=== PATIENT | female | born 1960 | race Caucasian/White ===

== ENCOUNTER 2020-02-09 15:47 | Outpatient (REF) | payer MEDICAID, SELFPAY | END 2020-02-09 15:48 | disposition home or self-care (01) | LOC: HO.LAB 15:47 | PROVIDERS: Visit Provider Internal Medicine | DX: Z20.828 Contact with and (suspected) exposure to other viral communicable diseases (principal) | CPT/HCPCS: C9803; U0003 ==

== ENCOUNTER 2021-11-23 19:14 | Emergency (ER) | payer MEDICAID, SELFPAY | END 2021-11-23 21:02 | disposition left against medical advice (07) | PROVIDERS: Emergency Provider Emergency Medicine | DX: R42 Dizziness and giddiness (principal); I10 Essential (primary) hypertension ==

== ENCOUNTER 2021-11-25 10:26 | Emergency (ER) | payer MEDICAID, SELFPAY ==
--- NOTE | 2021-11-25 10:33 | ED_ITS ---
HPI - General Adult General Chief complaint: Weakness Stated complaint: FLU LIKE SYMPTOMS Time Seen by Provider: 11/25/21 10:33 Source: patient, EMS and full time staff interpreter Mode of arrival: EMS Limitations: language barrier History of Present Illness HPI narrative: with lower abdominal pain and weakness. Patient states that over the last few No Known Allergies Allergy Unverified 11/05/19 18:48
--- NOTE | 2021-11-25 10:33 | ED.GENADULT ---
HPI - General Adult General Chief complaint: Weakness Stated complaint: FLU LIKE SYMPTOMS Time Seen by Provider: 11/25/21 10:33 Source: patient, EMS and senior digital designer Mode of arrival: EMS Limitations: language barrier History of Present Illness HPI narrative: Patient is a 60 year old female presenting to the emergency department today with lower abdominal pain and weakness. Patient states that over the last few days she has felt generally unwell and has some burning pain with urination. Patient denies any dizziness, lightheadedness, nausea, vomiting, fever, chills, blurry vision, double vision, loss of vision, chest pain, difficulty breathing, shortness of breath, back pain, night sweats, increased urinary frequency, increased urinary urgency, blood in her urine or stool, syncope or a near syncopal episode, recent trauma or falls, bowel incontinence, bladder incontinence, bowel retention, bladder retention, or any other complaints at this time. Onset (ago): day(s) (3) Location: abdomen Radiation: non-radiation Severity: mild Severity scale (1-10): 3 Quality: dull Relieving factors: none Exacerbating factors: none Associated symptoms: denies other symptoms Treatments prior to arrival: none Related Data Previous Rx's Medication Instructions Recorded cephalexin 500 mg capsule 500 mg PO Q6H 7 days #28 caps 11/25/21 Allergies Allergy/AdvReac Type Severity Reaction Status Date / Time No Known Allergies Allergy Unverified 11/05/19 18:48 Review of Systems Constitutional: Constitutional: Reports no additional constitutional complaints, Denies chills, Denies fever(s) and Denies night sweats Eyes: Eyes: Reports no additional eye complaints, Denies blurry vision, Denies change in vision, Denies diplopia, Denies eye discharge, Denies loss of vision and Denies eye pain ENT: Denies dizziness Cardiovascular: Cardiovascular: Reports no additional cardiovascular complaints, Denies chest pain, Denies lightheadedness, Denies Loss of Consciousness and Denies dyspnea Respiratory: Respiratory: Reports no additional respiratory complaints and Denies dyspnea Gastrointestinal: Gastrointestinal: Reports no additional gastrointestinal complaints, Reports abdominal pain, Denies melena, Denies hematochezia, Denies change in bowel habits and Denies change in stool character Genitourinary: Genitourinary: Denies hematuria, Denies urinary frequency, Reports dysuria, Denies urinary incontinence, Denies urinary hesitancy and Denies urinary urgency Musculoskeletal: Musculoskeletal: Reports no additional musculoskeletal complaints, Denies numbness and Denies tingling Neurologic: Denies dizziness, Denies loss of vision, Denies numbness and Denies tingling Psychiatric: Psychiatric: Reports no additional psychiatric complaints Endocrine: Endocrine: Reports no additional endocrine complaints Hematologic/Lymphatic: Hematologic/Lymphatic: Reports no additional hematologic/lymphatic complaints Allergic/Immunologic: Allergic/Immunologic: Reports no additional allergic/immunologic complaints PMFSH Past Medical History Attestation statement: The following information was validated with the patient. Source: old records reviewed Social History Social History Patient Tobacco Use Status: Never used Tobacco Smoked in Last 30 Days: No Use of substances other than those prescribed or required for medical reasons: No Advance Directives: No Advance Directives Information Provided: Yes Patient : No Physical Exam ED Vital Signs: Vital Signs - 24 hr 11/25/21 10:45 Temperature 98.4 F Pulse Rate 75 Respiratory Rate 14 Blood Pressure 177/85 H Pulse Oximetry 100 Oxygen Delivery Method Room Air BMI result Body Mass Index 23.8 Const General: cooperative, no acute distress, alert and awake Nutritional Appearance: well nourished Orientation/consciousness: patient oriented x3 Limitations: no limitations HENMT Head: Yes normal to inspection and Yes atraumatic Ears: hearing grossly normal bilaterally and external ears normal General nose exam: Normal external nose present, no nasal discharge noted and no epistaxis Face and sinus: Yes normal facial exam, No abrasion and No laceration Mouth: Normal oral and palatal mucosa present, no drooling and no muffled voice Eyes General: appearance normal, both eyes and all related structures Periorbital: periorbital findings normal Eyelids: Yes eyelids normal Conjunctivae: conjunctivae normal Pupils: Equal, round and reactive pupils present EOM: EOMs intact bilaterally Neck Neck: Yes normal visual inspection, Yes full ROM and Yes no lymphadenopathy Chest Chest palpation & inspection: normal inspection of the chest Resp Effort & Inspection: normal respiratory effort and able to speak in complete sentences GI Inspection: Yes normal to inspection Palpation (GI): Soft to palpation, not firm, nontender, no guarding and not rigid Neuro General: patient oriented x3 and moves all extremities Cranial nerves: Yes Equal, round and reactive pupils present Cognition (Neuro): normal cognition Motor exam (neuro): 5/5 motor strength present throughout Sensory Exam: Normal double simultaneous stimulation for sensation Coordination: [id number] test normal Extrem General: Yes normal to inspection, Yes full ROM and Yes capillary refill normal Psych Appearance: grossly normal Mental Status: mental status grossly normal Affect: normal affect Attitude: cooperative Thought process: Normal thought process present Thought content: Normal thought content present Insight: Good insight present (Psych) Medical Decision Making MDM Narrative Medical decision making narrative: Patient is a 60 year old female presenting to the emergency department today with lower abdominal pain and pain with urination. Patient's physical exam was unremarkable. Patient's blood work was unremarkable. Patient's urine showed a possible urinary tract infection. Patient's abdominal CT showed no acute process. Given the patient's clinical presentation and the urine showing a possible UTI, I will treat with antibiotics. I explained my physical exam findings as well as all test results to the patient. I answered all questions asked by the patient. I stressed the importance of the patient taking her medication as prescribed. I stressed the importance of the patient following up with her primary care provider. I stressed the importance of the patient returning to the emergency department immediately if her symptoms were to worsen or if she were to develop any dizziness, shortness of breath, difficulty breathing, chest pain, blurry vision, loss of vision, nausea, vomiting, abdominal pain, fever, chills, back pain, or any other complaints. Patient verbalized agreement and understanding with this treatment plan and discharge. Medical Records Medical records reviewed: Yes I reviewed the patient's medical records. Lab Data Lab results reviewed: Yes I reviewed the patient's lab results. Result diagrams: 11/25/21 11:23 11/25/21 11:23 Labs: Lab Results 11/25/21 11/25/21 11/25/21 Range/Units 11:23 11:23 11:23 WBC 4.6 L (4.8-10.8) X10*3/uL RBC 5.37 (4.20-5.50) X10*6/uL Hgb 14.7 (12.0-16.0) g/dl Hct 44.8 (37.0-47.0) % MCV 83.4 (80.0-98.0) fL MCH 27.4 (27.0-33.0) pg MCHC 32.8 (31.0-35.0) g/dl RDW 12.1 (11.0-16.0) % Plt Count 297 (160-400) X10*3/uL MPV 9.0 L (9.4-12.3) fL Immature Gran % (Auto) 0.2 (0.0-0.4) % Neut % (Auto) 58.9 (45-73) % Lymph % (Auto) 33.2 (20-40) % [place] % (Auto) 5.9 (2-11) % Eos % (Auto) 1.1 (0-4) % Baso % (Auto) 0.7 (0-2) % Lymph # (Auto) 1.5 (1.2-4.9) X10*3/uL [place] # (Auto) 0.3 (0.1-1.2) X10*3/uL Eos # (Auto) 0.1 (0.0-0.4) X10*3/uL Baso # (Auto) 0.0 (0.0-0.2) X10*3/uL Abs Immat Gran (auto) 0.01 (0.00-0.03) X10*3/uL Absolute Neuts (auto) 2.7 (2.0-8.3) x10*3/uL Absolute Nucleated RBC 0.000 (0.0-0.012) X10*3/uL Nucleated RBC % (auto) 0.0 (0.0-0.2) /100WBC Sodium 144 (135-145) mmol/L Potassium 3.4 (3.3-5.1) mmol/L Chloride 105 (96-108) mmol/L Carbon Dioxide 27 (22-29) mmol/L Anion Gap 15 (12-20) BUN 9 (9-16) mg/dL Creatinine 0.76 (0.5-1.4) mg/dL Estim Creat Clear Calc 62.1 Estimated GFR > 60 Random Glucose 112 (60-115) mg/dL Lactic Acid (0.5-2.0) mmol/L Calcium 9.5 (8.4-10.2) mg/dL Total Bilirubin 0.6 (0.0-1.0) mg/dL AST 30 (5-31) U/L ALT 24 (0-31) U/L Alkaline Phosphatase 108 (39-117) U/L Total Protein 8.7 H (6.5-8.0) g/dL Albumin 5.1 H (3.5-5.0) g/dL Urine Color Urine Appearance Urine pH (5.0-9.0) Ur Specific [place] (1.005-1.025) Urine Protein (Neg-Trace) mg/dL Urine Glucose (UA) (Negative) mg/dL Urine Ketones (Negative) mg/dL Urine Blood (Negative) Urine Nitrite (Negative) Ur Leukocyte Esterase (Negative) Urine RBC (0-2) /HPF Urine WBC (0-5) /HPF Ur Squamous Epith Cells (0-2) /HPF Urine Bacteria (None Seen) Hyaline Casts (0-2) /LPF Influenza Type A (PCR) NEGATIVE (Negative) Influenza Type B (PCR) NEGATIVE (Negative) RSV RNA Qual (PCR) NEGATIVE (Negative) SARS-CoV-2 RNA (RT-PCR) NEGATIVE (Negative) 11/25/21 11/25/21 Range/Units 11:23 13:37 WBC (4.8-10.8) X10*3/uL RBC (4.20-5.50) X10*6/uL Hgb (12.0-16.0) g/dl Hct (37.0-47.0) % MCV (80.0-98.0) fL MCH (27.0-33.0) pg MCHC (31.0-35.0) g/dl RDW (11.0-16.0) % Plt Count (160-400) X10*3/uL MPV (9.4-12.3) fL Immature Gran % (Auto) (0.0-0.4) % Neut % (Auto) (45-73) % Lymph % (Auto) (20-40) % [place] % (Auto) (2-11) % Eos % (Auto) (0-4) % Baso % (Auto) (0-2) % Lymph # (Auto) (1.2-4.9) X10*3/uL [place] # (Auto) (0.1-1.2) X10*3/uL Eos # (Auto) (0.0-0.4) X10*3/uL Baso # (Auto) (0.0-0.2) X10*3/uL Abs Immat Gran (auto) (0.00-0.03) X10*3/uL Absolute Neuts (auto) (2.0-8.3) x10*3/uL Absolute Nucleated RBC (0.0-0.012) X10*3/uL Nucleated RBC % (auto) (0.0-0.2) /100WBC Sodium (135-145) mmol/L Potassium (3.3-5.1) mmol/L Chloride (96-108) mmol/L Carbon Dioxide (22-29) mmol/L Anion Gap (12-20) BUN (9-16) mg/dL Creatinine (0.5-1.4) mg/dL Estim Creat Clear Calc Estimated GFR Random Glucose (60-115) mg/dL Lactic Acid 1.4 (0.5-2.0) mmol/L Calcium (8.4-10.2) mg/dL Total Bilirubin (0.0-1.0) mg/dL AST (5-31) U/L ALT (0-31) U/L Alkaline Phosphatase (39-117) U/L Total Protein (6.5-8.0) g/dL Albumin (3.5-5.0) g/dL Urine Color Yellow Urine Appearance Clear Urine pH 8.5 (5.0-9.0) Ur Specific [place] >= 1.030 H (1.005-1.025) Urine Protein Negative (Neg-Trace) mg/dL Urine Glucose (UA) Negative (Negative) mg/dL Urine Ketones Negative (Negative) mg/dL Urine Blood Trace H (Negative) Urine Nitrite Negative (Negative) Ur Leukocyte Esterase Trace H (Negative) Urine RBC 0-2 (0-2) /HPF Urine WBC 0-5 (0-5) /HPF Ur Squamous Epith Cells 0-2 (0-2) /HPF Urine Bacteria None Seen (None Seen) Hyaline Casts 0-2 (0-2) /LPF Influenza Type A (PCR) (Negative) Influenza Type B (PCR) (Negative) RSV RNA Qual (PCR) (Negative) SARS-CoV-2 RNA (RT-PCR) (Negative) Imaging Data CT scan - abdomen: Attestation: I personally reviewed and interpreted this imaging study as follows: My impression: No acute process. Radiologist's impression: EXAMINATION: CT abdomen pelvis w IV con CLINICAL INFORMATION: Reason for Exam abdominal pain COMPARISON: Prior CT scan 2016 TECHNIQUE: Multidetector volumetric imaging was performed from the superior aspect of the liver through the pubic symphysis 85 mL Omnipaque 350 injected Sagittal and coronal reformatted images were obtained on the technologist's workstation. ? This CT examination was performed using dose optimization techniques as appropriate, variously including the following: *Automated exposure control *Adjustment of mA and/or kV according to patient size (this includes techniques or standardized protocols for targeted exams where dose is matched to indication/reason for exam; i.e. extremities or head) *Use of iterative reconstruction technique DLP: 391 mGy-cm FINDINGS: LOWER THORAX: Included lung bases are clear. HEPATOBILIARY: No focal hepatic lesions. No biliary ductal dilatation. GALLBLADDER: Gallbladder unremarkable. SPLEEN: Spleen is normal in size. PANCREAS: No focal mass or ductal dilatation. STOMACH AND GASTROINTESTINAL TRACT: Stomach is grossly unremarkable. There is no bowel distention or thickening. No CT evidence of appendicitis. ADRENALS: No adrenal nodules. KIDNEYS/URETERS: No hydronephrosis, stones or solid mass lesions. URINARY BLADDER: Partially decompressed. PELVIC VISCERA: Unremarkable PERITONEUM: No free air or fluid. LYMPH NODES: No lymphadenopathy. VASCULAR:Abdominal aorta normal in size, no aneurysm found. BONES, ABDOMINAL WALL AND SOFT TISSUES: Age-appropriate changes of the spine and skeletal system, no destructive osteolytic or osteosclerotic bone lesion found CT/CT abdomen pelvis w IV con IMPRESSION: *No CT evidence of acute intra-abdominal process to explain patient's pain symptoms, no evidence of kidney stone, no free air or fluid, no evidence of bowel obstruction, no evidence of appendicitis. Dictated By: Ekta Huitron MD Signed By: Electronically signed by Ekta Huitron MD 11/25/21 0547 Discharge Plan Discharge Clinical Impression: Urinary tract infection Patient Disposition: Home, Self-Care Instructions: Urinary Tract Infection in Women (ED) Prescriptions: New cephalexin 500 mg capsule 500 mg PO Q6H 7 Days Qty: 28 0RF Referrals: [facility] [place] Family Medicine [Provider Group] (Call to establish and follow up with a primary care provider, if you already have a primary care provider, please follow up with them. ) [facility] [place] [facility] [Provider Group] (Call to establish and follow up with a primary care provider, if you already have a primary care provider, please follow up with them. ) [facility] [Provider Group] (Call to establish and follow up with a primary care provider, if you already have a primary care provider, please follow up with them. ) Stand Alone Forms: Work/School Release Interventions: ED Discharge Assessment Last Done: 11/25/21 14:20 Discharge Date/Time: 11/25/21 14:21 Print Language: Kinyarwanda
[2021-11-25 10:45] VITALS: BP 177/85; BP 188/100; PULSE 75; PULSE 93; RESP 14; TEMP 36.9; O2SAT 100; O2SAT 99; BMI 23.8
[2021-11-25 11:30] LABS: MANUAL DIFF FLAG NO
[2021-11-25 11:32] LABS: Basophils Percent Auto 0.7 % (0-2); Eosinophils Absolute Auto 0.1 X10*3/uL (0.0-0.4); Eosinophils Percent Auto 1.1 % (0-4); Hematocrit 44.8 % (37.0-47.0); Hemoglobin 14.7 g/dl (12.0-16.0); Imm Gran Abs Auto 0.01 X10*3/uL (0.00-0.03); Imm Gran Pct Auto 0.2 % (0.0-0.4); Lymphocytes Absolute Auto 1.5 X10*3/uL (1.2-4.9); Lymphocytes Percent Auto 33.2 % (20-40); Mean Corpuscular HGB Conc 32.8 g/dl (31.0-35.0); Mean Corpuscular Hemoglobin 27.4 pg (27.0-33.0); Mean Corpuscular Volume 83.4 fL (80.0-98.0); Monocytes Absolute Auto 0.3 X10*3/uL (0.1-1.2); Monocytes Percent Auto 5.9 % (2-11); Neutrophils Absolute Auto 2.7 x10*3/uL (2.0-8.3); Neutrophils Percent Auto 58.9 % (45-73); Platelet Count 297 X10*3/uL (160-400); Red Blood Count 5.37 X10*6/uL (4.20-5.50); Red Cell Distribution Width 12.1 % (11.0-16.0); White Blood Count 4.6 X10*3/uL (4.8-10.8)
[2021-11-25 11:44] LABS: Lactic Acid 1.4 mmol/L (0.5-2.0)
[2021-11-25 11:48] LABS: Alanine Aminotransferase 24 U/L (0-31); Albumin Level 5.1 g/dL (3.5-5.0); Alkaline Phosphatase 108 U/L (39-117); Anion Gap 15 (12-20); Aspartate Amino Transferase 30 U/L (5-31); Bilirubin Total 0.6 mg/dL (0.0-1.0); Blood Urea Nitrogen 9 mg/dL (9-16); Calcium 9.5 mg/dL (8.4-10.2); Carbon Dioxide 27 mmol/L (22-29); Chloride 105 mmol/L (96-108); Creatinine Clr Calc Pharmacy 62.1; Estimated Glomerular Filt Rate > 60; Glucose Random 112 mg/dL (60-115); Potassium 3.4 mmol/L (3.3-5.1); Sodium 144 mmol/L (135-145); Total Protein 8.7 g/dL (6.5-8.0)
[2021-11-25] MEDS: iohexoL 350 MG/ML 100 ML INFUS..BTL 85 ML IV (12:08)
[2021-11-25 12:09] LABS: Influenza A PCR NEGATIVE (Negative); Influenza B PCR NEGATIVE (Negative); Resp Syncy Virus RNA Qual PCR NEGATIVE (Negative); SARS COV2 PCR INHOUSE NEGATIVE (Negative)
[2021-11-25 13:49] LABS: Appearance Urine Clear; Color Urine Yellow; Glucose Urine UA Negative (Negative); Leukocyte Esterase Urine Trace (Negative); Nitrite Urine Negative (Negative); PH 8.5 (5.0-9.0); Specific Gravity - Urine >= 1.030 (1.005-1.025); UMIC TRIGGER UACC YES; Urine Blood Trace (Negative); Urine Ketones Negative (Negative); Urine Protein Negative (Neg-Trace)
[2021-11-25 13:54] LABS: Bacteria Urine None Seen (None Seen); Hyaline Casts Urine 0-2 /LPF (0-2); RBC Urine 0-2 /HPF (0-2); Squamous Epithelial Cell Urine 0-2 /HPF (0-2); WBC Urine 0-5 /HPF (0-5)
--- NOTE | 2021-11-25 14:19 | PC.NURSE ---
pt PWD at time of discharge. pt friend at bedside. discharge packet and work note provided to pt. pt verbalized understanding of discharge plan.
== END 2021-11-25 14:21 | disposition home or self-care (01) ==
PROVIDERS: Physician Assistant Medical; Emergency Provider Emergency Medicine
DX: N39.0 Urinary tract infection, site not specified (principal); R53.1 Weakness; Z20.822 Contact with and (suspected) exposure to COVID-19; R10.30 Lower abdominal pain, unspecified
CPT/HCPCS: 0241U; 36415; 74177; 80053; 81001; 83605; 85025; 87040; 99284; Q9967

== ENCOUNTER 2022-02-13 17:50 | Emergency (ER) | payer MEDICAID, SELFPAY ==
--- NOTE | ~2022-02-13 | CT_ITS ---
EXAMINATION: CT ABDOMEN AND PELVIS WITHOUT CONTRAST CLINICAL INFORMATION: Bilateral flank pain. Urinary tract infection. COMPARISON: CT abdomen and pelvis from 11/25/2021. TECHNIQUE: Multidetector volumetric imaging was performed from the lung bases to the pubic symphysis without contrast. Sagittal and coronal reformatted images were obtained on the technologist workstation. This CT examination was performed using dose optimization techniques as appropriate, variously including the following: *Automated exposure control. *Adjustment of mA and/or kV according to patient size (this includes techniques or standardized protocols for targeted exams where dose is matched to indication/reason for exam; i.e. extremities or head). *Use of iterative reconstruction technique. DLP: 412 mGy-cm FINDINGS: LUNG BASES: Mild bilateral dependent atelectasis. Otherwise, no abnormalities of the visualized lung bases. No demonstrated abnormalities of the visualized cardiac structures. ABDOMEN/PELVIS: Liver, Biliary Ducts, and Gallbladder: The unenhanced liver is normal in size and attenuation without focal hepatic lesions or biliary ductal dilatation. The gallbladder is physiologically distended without radiopaque gallstones, pericholecystic fluid, or significant gallbladder wall thickening. Pancreas: The pancreas is normal in appearance. Adrenal Glands: The adrenal glands are normal in appearance. Spleen: The spleen is normal in appearance. Kidneys and Ureters: The unenhanced kidneys are normal in size without evidence of nephrolithiasis or hydronephrosis. No ureterolithiasis or hydroureter. Urinary Bladder: The urinary bladder is partially distended. Moderate diffuse wall thickening of the urinary bladder with moderate surrounding fat stranding. No bladder calculi are demonstrated. Gastrointestinal System: The stomach is decompressed and therefore not well evaluated on this exam. The small bowel is of normal caliber. The colon is normal in appearance without focal wall thickening or pericolonic inflammatory change. Normal appendix. Genitourinary: No adnexal soft tissue masses demonstrated. Intra-abdominal and Retroperitoneal Spaces: No intra-abdominal free fluid collections or gas. No mesenteric, retroperitoneal, or inguinal lymphadenopathy. VASCULATURE: The abdominal aorta is of normal contour and caliber with minimal calcific atherosclerotic disease. MUSCULOSKELETAL: Mild multilevel degenerative changes of the spine. No lytic or sclerotic osseous lesions demonstrated. No soft tissue masses demonstrated. CT/CT abdomen pelvis wo IV con IMPRESSION: 1. Moderate diffuse wall thickening of the urinary bladder with surrounding fat stranding suggestive of nonspecific cystitis. Recommend correlation with urinalysis. 2. No evidence of nephrolithiasis or hydronephrosis/hydroureter.
--- NOTE | 2022-02-13 18:43 | ED_ITS ---
HPI - General Adult General Chief complaint: Urogenital-Female Stated complaint: ?UTI Time Seen by Provider: 02/13/22 22:05 Source: patient Mode of arrival: ambulatory Limitations: no limitations History of Present Illness HPI narrative: ?61 year old female presents w/ b/l flank pain, urinary frequency, urgency, dyuria, suprapubic abd pain X 4 days. Patient tells me that this feels like her typical UIT tells me she had one a few months ago that presented similarly. Denies fevers, chills, nausea, vomiting, cp, sob Related Data Previous Rx's Medication Instructions Recorded cephalexin 500 mg capsule 500 mg PO Q6H 7 days #28 caps 11/25/21 cefuroxime axetil 250 mg tablet 250 mg PO BID 7 days #14 tabs 02/13/22 phenazopyridine 100 mg tablet 200 mg PO TID 2 days #6 tabs 02/13/22 (Pyridium) Allergies Allergy/AdvReac Type Severity Reaction Status Date / Time No Known Allergies Allergy Verified 02/13/22 18:49 Review of Systems Review of Systems: Constitutional : No Weight loss, No Fever, No Chills, No Fatigue, No Malaise ENT/Mouth : No sore throat, No Rhinorrhea Eyes: No Eye Pain, No Swelling, No Redness Cardiovascular : No Chest Pain, No SOB, No Dyspnea on Exertion, No Orthopnea, No Edema, No Palpitations Respiratory : No Cough, No Sputum, No Wheezing Gastrointestinal : No Nausea, No Vomiting, No Diarrhea, No Constipation, + abdominal Pain, No Hematochezia, No Melena Genitourinary : + Dysuria, + Urinary Frequency, No Hematuria, Musculoskeletal : No joint pain, No Myalgias, No Joint Swelling Skin : No Skin Lesions, No rash Neuro : No Weakness, No Numbness, No Dizziness, No Headache Psych : No Anxiety/Panic, No Depression All other systems reviewed and are negative Yes all other systems are reviewed and are negative [facility] Past Medical History Attestation statement: The following information was validated with the patient. Source: old records reviewed and nursing notes reviewed Social History Social History Patient Tobacco Use Status: Never used Tobacco Advance Directives: No Advance Directives Information Provided: No Physical Exam ED Vital Signs: Vital Signs - 24 hr 02/13/22 18:44 02/13/22 22:01 Temperature 98.0 F Pulse Rate 96 90 Respiratory Rate 18 18 Blood Pressure 169/100 H 181/82 H Pulse Oximetry 97 98 Oxygen Delivery Method Room Air BMI result Body Mass Index 25.4 Initial pressure elevated however repeat pressure improved. Was 169/100 now 181/82 ( patient has hx of HTN, no headache vision changes or dizziness) NIHSS 0 Appearance: Alert.? Oriented X3.? No acute distress.? Head: Normocephalic, atraumatic, no step-offs or deformities Eyes: Pupils equal, round and reactive to light.? ENT: Pharynx normal.? Neck: Normal inspection.? Neck supple.? CVS: Normal heart rate and rhythm.? Pulses normal.? Respiratory: No respiratory distress.? Breath sounds normal.? Abdomen: Soft and nontender.? Skin: Skin warm and dry.? Normal skin color.? Normal skin turgor.? Extremities: No lower extremity edema.? No calf ttp. 5/5 strength to bilateral upper and lower extremities Back: + Mild CVA tenderness bilaterally Neuro: Oriented X 3.? No motor deficit.? No sensory deficit. CN 2-12 intact Course Course Course Narrative: 1844 RME 61 year old female presents w/ b/l flank pain, urinary frequency, urgency, dyuria, suprapubic abd pain X 4 days. Denies fevers, chills, nausea, vomiting, cp, sob PE: benign. Mild CVA tenderness bl Plan: imaging UA. Reevaluation(s) Reevaluation #1: CT of the abdomen pelvis showing moderate diffuse wall thickening of the urinary bladder with surrounding fat stranding suggesting nonspecific cystitis. No evidence of nephrolithiasis or hydronephrosis or hydroureter. Pending urine. Suspected patient has UTI. Time: 22:02 Reevaluation #2: UTI with large amounts of white blood cells , concern for UTI. Patient will be discharged home on Ceftin 250 mg p.o. b.i.d. x7 days. Advised to return with new or worsening symptoms Educated patient on diagnosis and treatment plan, answered all question, patient verbalizes understanding. At this time patient will be discharged home, advised to return with new or worsening symptoms. Educated on worrisome signs and symptoms and when to return. At this time I feel comfortable discharge home. Time: 22:11 Medical Decision Making Medical Decision Making [facility] Narrative: 2200 61 yo F presents w/ UTI like symptoms x4 days. Physical exam with mild CVA tender Likely UTI versus cystitis unlikely pyelo. Patient appears well, nontoxic no fevers or chills. CT scan was ordered from triage as well as urine. Lab Data Labs: Lab Results 02/13/22 Range/Units 22:00 Urine Color Yellow Urine Appearance Cloudy Urine pH 6.0 (5.0-9.0) Ur Specific [place] 1.010 (1.005-1.025) Urine Protein 30 (1+) H (Neg-Trace) mg/dL Urine Glucose (UA) Negative (Negative) mg/dL Urine Ketones Negative (Negative) mg/dL Urine Blood Large (3+) H (Negative) Urine Nitrite Negative (Negative) Ur Leukocyte Esterase Large (3+) H (Negative) Critical Care Time Critical Care Time Critical Care Time: No Discharge Plan Discharge Clinical Impression: Urinary tract infection Patient Disposition: Home, Self-Care Instructions: Urinary Tract Infection in Women (ED) Additional Instructions: Take your medications as prescribed. If you were prescribed antibiotics today, it is important that you take your medication to their entirety, do not skip any doses, do not finish them early. Follow-up with your primary care provider this week. Return to the emergency department with new or worsening symptoms. Such as fevers, chills, chest pain, shortness of breath, nausea, vomiting, dizziness, headache, vision changes, lethargy In case of emergency call 911 ?CT/CT abdomen pelvis wo IV con IMPRESSION: 1.? Moderate diffuse wall thickening of the urinary bladder with surrounding fat stranding suggestive of nonspecific cystitis. Recommend correlation with urinalysis. 2.? No evidence of nephrolithiasis or hydronephrosis/hydroureter. Prescriptions: New cefuroxime axetil 250 mg tablet 250 mg PO BID 7 Days Qty: 14 0RF phenazopyridine [Pyridium] 100 mg tablet 200 mg PO TID 2 Days Qty: 6 0RF No Action cephalexin 500 mg capsule 500 mg PO Q6H 7 Days Qty: 28 0RF Referrals: Physician,Unknown J [Primary Care Provider] - 2 days Stand Alone Forms: Work/School Release
[2022-02-13 18:44] VITALS: BP 169/100; PULSE 96; RESP 18; TEMP 36.7; O2SAT 97; BMI 25.4
[2022-02-13 22:01] VITALS: BP 181/82; PULSE 90; RESP 18; O2SAT 98
[2022-02-13 22:09] LABS: Appearance Urine Cloudy; Color Urine Yellow; Glucose Urine UA Negative (Negative); Leukocyte Esterase Urine Large (3+) (Negative); Nitrite Urine Negative (Negative); UMIC TRIGGER UACC YES; Urine Blood Large (3+) (Negative); Urine Ketones Negative (Negative); Urine Protein 30 (1+) mg/dL (Neg-Trace)
[2022-02-13 22:14] LABS: Bacteria Urine 2+ (None Seen); Hyaline Casts Urine 0-2 /LPF (0-2); RBC Urine >20 /HPF (0-2); Squamous Epithelial Cell Urine 0-2 /HPF (0-2); UACC Culture Trigger YES; WBC Urine >50 /HPF (0-5)
== END 2022-02-13 22:15 | disposition home or self-care (01) ==
PROVIDERS: Physician Assistant; Emergency Provider Internal Medicine
DX: N39.0 Urinary tract infection, site not specified (principal); R35.0 Frequency of micturition; Z79.899 Other long term (current) drug therapy
CPT/HCPCS: 74176; 81001; 87086; 87088; 87186; 99283; 99284

== ENCOUNTER 2024-10-20 22:39 | Emergency (ER) | payer MEDICAID, SELFPAY ==
[2024-10-20 22:43] VITALS: BP 158/84; PULSE 85; RESP 18; TEMP 36.3; O2SAT 99; BMI 26.1
[2024-10-20 23:36] LABS: Hematocrit 37.6 % (37.0-47.0); Hemoglobin 13.1 g/dl (12.0-16.0); Mean Corpuscular HGB Conc 34.8 g/dl (31.0-35.0); Mean Corpuscular Hemoglobin 28.1 pg (27.0-33.0); Mean Corpuscular Volume 80.5 fL (80.0-98.0); NRBC Abs Auto 0.000 X10*3/uL (0.0-0.012); NRBC Pct Auto 0.0 /100WBC (0.0-0.2); Platelet Count 315 X10*3/uL (160-400); Red Blood Count 4.67 X10*6/uL (4.20-5.50); White Blood Count 11.0 X10*3/uL (4.8-10.8)
[2024-10-20 23:51] LABS: Alanine Aminotransferase 26 U/L (0-31); Albumin Level 4.8 g/dL (3.5-5.0); Alkaline Phosphatase 104 U/L (39-117); Anion Gap 14 (12-20); Aspartate Amino Transferase 27 U/L (5-31); Blood Urea Nitrogen 14 mg/dL (9-16); Calcium 9.3 mg/dL (8.4-10.2); Carbon Dioxide 26 mmol/L (22-29); Chloride 106 mmol/L (96-108); Creatinine Clr Calc Pharmacy 54.9; Estimated Glomerular Filt Rate > 60; Potassium 3.2 mmol/L (3.3-5.1); Sodium 143 mmol/L (135-145); Total Protein 7.8 g/dL (6.5-8.0)
[2024-10-21 00:44] LABS: MANUAL DIFF FLAG NO
[2024-10-21 00:45] LABS: Imm Gran Abs Auto 0.03 X10*3/uL (0.00-0.03); Imm Gran Pct Auto 0.3 % (0.0-0.4); Lymphocytes Absolute Auto 2.1 X10*3/uL (1.2-4.9)
--- NOTE | 2024-10-21 01:12 | ED.SKABFB ---
HPI - Skin/Abscess/Foreign Bdy General Chief complaint: Allergic Reaction Stated complaint: Rash Time Seen by Provider: 10/20/24 23:42 Source: patient Mode of arrival: ambulatory Limitations: no limitations History of Present Illness ED Provider: Dr. Pauly Barclay HPI narrative: 63-year-old female with no significant past medical history presenting with full body hives that began yesterday. States that she had surgery approximately 9 days ago on her rotator cuff on the right arm. Admits that she had no issues postoperatively and has been taking occasional oxycodone for pain. She did receive a single dose of IV fluids and antibiotics during surgery but since then has had no further antibiotics or topical medications. She has no other signs and symptoms of an allergic reaction including difficulty breathing, tongue or throat swelling, abdominal pain, nausea, vomiting, diarrhea, passing out or lightheadedness. She has been feeling well and has been healing well with the surgery. No pus drainage from her surgical sites. Wounds appear well healing. No new exposures, new products in the home or insect bites. She has no history of allergies. No reported fever. Related Data Previous Rx's ?Medication ?Instructions ?Recorded cephalexin 500 mg capsule 500 mg PO Q6H 7 days #28 caps 11/25/21 cefuroxime axetil 250 mg tablet 250 mg PO BID 7 days #14 tabs 02/13/22 phenazopyridine 100 mg tablet 200 mg (2 x 100 mg) PO TID 2 days 02/13/22 (Pyridium) #6 tabs prednisone 50 mg tablet 50 mg PO DAILY 5 days #5 tabs 10/21/24 Allergies Allergy/AdvReac Type Severity Reaction Status Date / Time No Known Allergies Allergy Verified 10/20/24 22:47 Review of Systems Review of Systems: as per HPI, full review of systems performed and negative but for the above mentioned pertinent positives and negatives. [facility] Social History Social History Patient Tobacco Use Status: Never used Tobacco Advance Directives: No Advance Directives Information Provided: Yes Physical Exam Exam: Exam: GENERAL: Well-Appearing, conversant, no acute distress. SKIN: Normal skin color for ethnicity, warm, dry, diffuse hives do not involve palms, soles or oral mucosa. HEENT:? Normocephalic, atraumatic, no stridor, posterior oropharynx nonerythematous, dentition intact, EOMI. NECK: Soft, supple, full ROM, midline structures nontender, no step-offs, no deformities, no lymphadenopathy. CHEST: Heart regular rate and rhythm, no murmurs, symmetric chest rise and fall. PULMONARY: Clear to auscultation bilaterally, no labored breathing, no wheezes/rhales/rhonchi. ABDOMINAL: Soft, nondistended, nontender, positive bowel sounds in all quadrants. : Deferred. MUSCULOSKELETAL: Normal tone, R shoulder is in immobiizer, incisions are clean, dry, intact with sutures in place, no deformities, no peripheral edema. NEURO: Alert and oriented x3, CN II through XII intact, equal strength and sensation bilateral upper and lower extremities, no focal neurologic deficits.? PSYCHIATRIC: Normal affect, fluid speech, good eye contact and appropriate demeanor. Vital Signs: Vital Signs: Last Vital Signs Temp 97.7 F 10/21/24 02:01 Pulse 82 10/21/24 02:01 Resp 16 10/21/24 02:01 BP 168/92 H 10/21/24 02:01 Pulse Ox 98 10/21/24 02:01 O2 Del Method Room Air 10/21/24 02:01 BMI result Body Mass Index 26.1 Medications Administered Discontinued Medications Generic Name Dose Route Start Last Admin Trade Name Freq PRN Reason Stop Dose Admin Dexamethasone 6 mg 10/21/24 01:04 10/21/24 01:53 Dexamethasone 6 Mg Tablet PO 10/21/24 01:05 6 mg ONCE ONE Administration Diphenhydramine HCl 50 mg 10/21/24 01:04 10/21/24 01:39 Diphenhydramine Hcl 25 Mg Capsule PO 10/21/24 01:05 50 mg ONCE ONE Administration Famotidine 20 mg 10/21/24 01:04 10/21/24 01:39 Famotidine 20 Mg Tablet PO 10/21/24 01:05 20 mg ONCE ONE Administration Loratadine 10 mg 10/21/24 01:04 10/21/24 01:39 Loratadine 10 Mg Tablet PO 10/21/24 01:05 10 mg ONCE ONE Administration Medical Decision Making Medical Decision Making MDM Narrative: Patient presents today with chief complaint of rash. Differential diagnosis is broad. I considered diagnoses including all rashes that might represent some type of emergent pathology. The patient specifically does not have evidence of vesicles, blistering, petechiae or purpura, involvement of the palms, soles or mucous membranes. There has not been any introduction of new medications. Vital signs are normal. Systemically very well-appearing. Rash consistent with hives, possivble drug reaction vs allergic reaction. Treated with prednisone, antihistamines. She is nontoxic and stable. Using shared decision making, plan for discharge home to follow-up with primary care and/or specialist.? Patient understands and agrees with plan for discharge.? Discharged home in stable condition. Lab Data 10/20/24 23:32 10/20/24 23:32 Labs: Lab Results 10/20/24 Range/Units 23:32 WBC 11.0 H (4.8-10.8) X10*3/uL RBC 4.67 (4.20-5.50) X10*6/uL Hgb 13.1 (12.0-16.0) g/dl Hct 37.6 (37.0-47.0) % MCV 80.5 (80.0-98.0) fL MCH 28.1 (27.0-33.0) pg MCHC 34.8 (31.0-35.0) g/dl RDW 12.7 (11.0-16.0) % Plt Count 315 (160-400) X10*3/uL MPV 9.3 L (9.4-12.3) fL Immature Gran % (Auto) 0.3 (0.0-0.4) % Neut % (Auto) 76.8 H (45-73) % Lymph % (Auto) 19.3 L (20-40) % [place] % (Auto) 2.8 (2-11) % Eos % (Auto) 0.7 (0-4) % Baso % (Auto) 0.1 (0-2) % Lymph # (Auto) 2.1 (1.2-4.9) X10*3/uL [place] # (Auto) 0.3 (0.1-1.2) X10*3/uL Eos # (Auto) 0.1 (0.0-0.4) X10*3/uL Baso # (Auto) 0.0 (0.0-0.2) X10*3/uL Abs Immat Gran (auto) 0.03 (0.00-0.03) X10*3/uL Absolute Neuts (auto) 8.5 H (2.0-8.3) x10*3/uL Absolute Nucleated RBC 0.000 (0.0-0.012) X10*3/uL Nucleated RBC % (auto) 0.0 (0.0-0.2) /100WBC Sodium 143 (135-145) mmol/L Potassium 3.2 L (3.3-5.1) mmol/L Chloride 106 (96-108) mmol/L Carbon Dioxide 26 (22-29) mmol/L Anion Gap 14 (12-20) BUN 14 (9-16) mg/dL Creatinine 0.79 (0.5-1.4) mg/dL Estim Creat Clear Calc 54.9 Estimated GFR > 60 Random Glucose 101 (60-115) mg/dL Calcium 9.3 (8.4-10.2) mg/dL Total Bilirubin 0.6 (0.0-1.0) mg/dL AST 27 (5-31) U/L ALT 26 (0-31) U/L Alkaline Phosphatase 104 (39-117) U/L C-Reactive Protein 0.75 H (< or = 0.50) mg/dL Total Protein 7.8 (6.5-8.0) g/dL Albumin 4.8 (3.5-5.0) g/dL Discharge Plan Discharge Clinical Impression: Urticaria Patient Disposition: Home, Self-Care Instructions: Urticaria (ED) Additional Instructions: You are likely having an allergic reaction to an unknown substance, either a drug that you have recently had or some type of new product in your home. Alternatively, you may be developing a virus which can cause this kind of rash as well. Take steroids for the next 5 days to see if this helps with the rash. You may also use topical creams that help with the itching such as Benadryl or hydrocortisone cream. Use Benadryl and Zyrtec daily for itching. Return to the emergency department immediately with any new or worsening symptoms including: Fevers greater than 100?, rash in the inside of your mouth or on your palms and soles, difficulty breathing, tongue or throat swelling, passing out, inability to tolerate food or drink, any new symptom that concerns you. Call 911 with any medical emergency. Prescriptions: New prednisone 50 mg tablet 50 mg PO DAILY 5 Days Qty: 5 0RF No Action cephalexin 500 mg capsule 500 mg PO Q6H 7 Days Qty: 28 0RF cefuroxime axetil 250 mg tablet 250 mg PO BID 7 Days Qty: 14 0RF phenazopyridine [Pyridium] 100 mg tablet 200 mg PO TID 2 Days Qty: 6 0RF Interventions: ED Discharge Assessment Last Done: 10/21/24 02:01 Discharge Date/Time: 10/21/24 02:02 Print Language: Indonesian
[2024-10-21 02:00] VITALS: BP 168/92; PULSE 82; RESP 16; TEMP 36.5; O2SAT 98
[2024-10-21 02:01] VITALS: BP 168/92; PULSE 82; RESP 16; TEMP 36.5; O2SAT 98
== END 2024-10-21 02:02 | disposition home or self-care (01) ==
PROVIDERS: Emergency Provider Emergency Medicine; PCP Internal Medicine
DX: L50.9 Urticaria, unspecified (principal); Z98.890 Other specified postprocedural states; Z79.899 Other long term (current) drug therapy
CPT/HCPCS: 36415; 80053; 85025; 85027; 86140; 99283; J8540